=== PATIENT | male | born 1995 | race Caucasian/White ===

== ENCOUNTER 2018-03-15 09:10 | Emergency (ER) | payer MEDICAID, OTHER ==
[~2018-03-15] VITALS: Ht 185.4 cm; Wt 170.1 kg
--- OUTSIDE RECORDS SUMMARY | 2018-03-15 09:15 | XMS REPORT ---
Author Author CANDY STINSON Organization [facility] Address [address] [place] [address] Care Team Providers Care Risk Assessment Consultant Name Role Phone PATRICIO STINSONICE Unavailable PROBLEMS Type Condition ICD9-CM Code ZIL68-IE Code Onset Dates Condition Status SNOMED Code Problem Allergic rhinitis, cause unspecified 477.9 Active 65168940 Problem Acute serous otitis media 381.01 Active 849794775 Problem Unspecified infective otitis externa 380.10 Active 49316956 Problem Other general medical examination for administrative purposes V70.3 Active 06286349 ALLERGIES No Known Allergies SOCIAL HISTORY Never Assessed PLAN OF CARE Activity Details Follow Up prn Reason: VITAL SIGNS Height 70 in 2016-03-04 Weight 345 lbs 2016-03-04 Temperature 98 degrees Fahrenheit 2016-03-04 Heart Rate 80 bpm 2016-03-04 Respiratory Rate 18 2016-03-04 BMI 49.50 kg/m2 2016-03-04 Blood pressure systolic 124 mmHg 2016-03-04 Blood pressure diastolic 68 mmHg 2016-03-04 MEDICATIONS No Known Medications RESULTS No Results PROCEDURES No Known procedures IMMUNIZATIONS No Known Immunizations
--- OUTSIDE RECORDS SUMMARY | 2018-03-15 09:15 | XMS REPORT ---
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 Active 09852838 Problem Autism F84.0 Active 238362739 Problem Unspecified infective otitis externa 380.10 Active 52228267 Problem Other general medical examination for administrative purposes V70.3 Active 22387418 Problem Allergic rhinitis, cause unspecified 477.9 Active 50634319 Problem Acute serous otitis media 381.01 Active 422115576 ALLERGIES Substance Reaction Event Type Date Status Ketamine HCl Unknown Drug Allergy Apr, Active ENCOUNTERS Encounter Location Date Diagnosis [facility] [id number] [place] [phone] Apr, Autism F84.0 ; Severe mental retardation F72 and BMI 50.0-59.9, adult Z68.43 [facility] [id number] [place] [address] [phone] Feb, Physical exam, routine Z00.00 [facility] [id number] [place] [phone] May, [facility] [id number] [place] [phone] May, [facility] [id number] [place] [phone] Feb, [facility] [id number] [place] [phone] Feb, [facility] [id number] [place] [phone] June, [facility] [address] [facility] [id number] [place] [address] June, [facility] [address] [facility] [id number] [place] [phone] Aug, [facility] [address] [facility] [id number] [place] [address] Oct, IMMUNIZATIONS No Known Immunizations SOCIAL HISTORY Never Assessed REASON FOR VISIT Physical for guardianship for mom since pt is adult Melissa NEGRON PLAN OF CARE Activity Details Follow Up prn Reason: VITAL SIGNS Height 70 in 2017-05-04 Weight 360 lbs 2017-05-04 Temperature 98.7 degrees Fahrenheit 2017-05-04 Heart Rate 78 bpm 2017-05-04 Respiratory Rate 18 2017-05-04 BMI 51.65 kg/m2 2017-05-04 Blood pressure systolic 132 mmHg 2017-05-04 Blood pressure diastolic 78 mmHg 2017-05-04 MEDICATIONS No Known Medications RESULTS No Results PROCEDURES No Known procedures INSTRUCTIONS MEDICATIONS ADMINISTERED No Known Medications MEDICAL (GENERAL) HISTORY Type Description Date Medical History severe autism dx age 2 1/2 years old
--- OUTSIDE RECORDS SUMMARY | 2018-03-15 09:15 | XMS REPORT | Continuity of Care Document ---
Author Author [facility] Address Unknown Phone Unavailable Allergies Active Description Code Type Severity Reaction Onset Reported/Identified Relationship to Patient Clinical Status Yes ketamine Drug Allergy N/A N/A 03/17/2010 Medications There is no data. Problems Date Dx Coded Attending Type Code Diagnosis Diagnosed By 03/17/2010 299.00 AUTISTIC DISORDER CURRENT OR ACTIVE STATE 03/17/2010 319 UNSPECIFIED MENTAL RETARDATION 03/17/2010 V20.2 WELL CHILD 03/17/2010 LEONEL VALENTIN APRN A 299.00 AUTISTIC DISORDER CURRENT OR ACTIVE STATE 03/17/2010 HOMERO JOHNSON LEONEL A 319 UNSPECIFIED MENTAL RETARDATION 03/17/2010 CARLOS VALENTIN APRNYL A V20.2 WELL CHILD 03/17/2010 JC ALEXANDER APRN R 299.00 AUTISTIC DISORDER CURRENT OR ACTIVE STATE 03/17/2010 JC ALEXANDER APRN R 319 UNSPECIFIED MENTAL RETARDATION 03/17/2010 JC ALEXANDER APRN R V20.2 WELL CHILD 10/26/2010 380.4 IMPACTED CERUMEN 10/26/2010 388.70 EAR ACHE 10/26/2010 V05.4 VARICELLA DX 10/26/2010 V15.09 PERSONAL HISTORY OF OTHER ALLERGY OTHER THAN TO MEDICINAL AGENTS 10/26/2010 RAJNIR JOHNSON LEONEL A 380.4 IMPACTED CERUMEN 10/26/2010 RAJABHIJEETE ELIZABETH LEONEL A 388.70 EAR ACHE 10/26/2010 RAJOTTE ELIZABETH LEONEL A V05.4 VARICELLA DX 10/26/2010 RAJABHIJEETE ELIZABETH LEONEL A V15.09 PERSONAL HISTORY OF OTHER ALLERGY OTHER THAN TO MEDICINAL AGENTS 10/26/2010 LYLA ALEXANDER APRNIA R 380.4 IMPACTED CERUMEN 10/26/2010 LYLA ALEXANDER APRNIA R 388.70 EAR ACHE 10/26/2010 JC ALEXANDER APRN R V05.4 VARICELLA DX 10/26/2010 JC ALEXANDER APRN V15.09 PERSONAL HISTORY OF OTHER ALLERGY OTHER THAN TO MEDICINAL AGENTS 08/08/2012 380.10 INFECTIVE OTITIS EXTERNA UNSPECIFIED 08/08/2012 LEONEL VALENTIN APRN 380.10 INFECTIVE OTITIS EXTERNA UNSPECIFIED 08/08/2012 JC ALEXANDER APRN R 380.10 INFECTIVE OTITIS EXTERNA UNSPECIFIED 06/07/2013 LEONEL VALENTIN APRN A 381.01 ACUTE SEROUS OTITIS MEDIA 06/07/2013 LEONEL VALENTIN APRN 477.9 ALLERGIC RHINITIS CAUSE UNSPECIFIED 06/07/2013 JC ALEXANDER APRN R 381.01 ACUTE SEROUS OTITIS MEDIA 06/07/2013 JC ALEXANDER APRN 477.9 ALLERGIC RHINITIS CAUSE UNSPECIFIED 02/21/2014 JC ALEXANDER APRN V70.3 OTHER GENERAL MEDICAL EXAMINATION FOR ADMINISTRATIVE PURPOSES Procedures There is no data. Results There is no data. Encounters ACCT No. Visit Date/Time Discharge Status Pt. Type Provider Facility Loc./Unit Complaint [id number] 02/21/2014 13:18:00 02/21/2014 23:59:59 CLS Outpatient JC ALEXANDER APRN [id number] 06/07/2013 08:22:00 06/07/2013 23:59:59 CLS Outpatient LEONEL VALENTIN APRN [id number] 08/08/2012 13:20:00 Document Registration [id number] 05/04/2017 14:20:00 05/04/2017 23:59:59 [facility]
[2018-03-15 09:36] LABS: BASOPHILS # (AUTO) 0.1 10^3/uL (0.0-0.1); BASOPHILS % (AUTO) 1 % (0-10); EOSINOPHILS # (AUTO) 0.1 10^3/uL (0.0-0.3); EOSINOPHILS % (AUTO) 2 % (0-10); HEMATOCRIT 43 % (40-54); HEMOGLOBIN 14.7 G/DL (13.3-17.7); LYMPHOCYTES # (AUTO) 1.8 X 10^3 (1.0-4.0); LYMPHOCYTES % (AUTO) 27 % (12-44); MEAN CORPUSCULAR HEMOGLOBIN 29 PG (25-34); MEAN CORPUSCULAR HGB CONC 34 G/DL (32-36); MEAN CORPUSCULAR VOLUME 85 FL (80-99); MEAN PLATELET VOLUME 10.9 FL (7.4-10.4); MONOCYTES # (AUTO) 0.5 X 10^3 (0.0-1.0); MONOCYTES % (AUTO) 8 % (0-12); NEUTROPHILS # (AUTO) 4.1 X 10^3 (1.8-7.8); NEUTROPHILS % (AUTO) 63 % (42-75); PLATELET COUNT 286 10^3/uL (130-400); RED CELL DISTRIBUTION WIDTH 12.8 % (10.0-14.5); WHITE BLOOD COUNT 6.6 10^3/uL (4.3-11.0)
--- NOTE | 2018-03-15 09:38 | ED Neurological Problem ---
General Chief Complaint: Neurological Problems Stated Complaint: SEIZURE Nursing Triage Note: ARRIVED VIA EMS FROM [employer]. REPORTED THAT PT BECAME STIFF AND NON VERBAL FOR ABOUT 2-3 MINS. PT WAS LOWERED TO THE GROUND BY STAFFF. EMS REPORTS PT BEING MORE DROWSY UPON THERE ARRIVAL. UPON ARRIVAL TO ER PT ALERT ET MOM IN ROOM ET STATES HE IS ACTING HIS USUAL SELF. Nursing Sepsis Screen: No Definite Risk Source: patient, family (mom and dad), EMS, caregiver (teachers) Exam Limitations: physical impairment (autism) History of Present Illness Date Seen by Provider: Mar 15, 2018 Time Seen by Provider: 09:20 Initial Comments The patient presents to ER by EMS from school with chief complaint per teacher who was standing at his side that he went unresponsive started stiffening up arching his back and so the teacher lowered him to the floor. The event lasted 2 -3 minutes per the teacher. EMS reported normal vital signs. He did not strike his head nor is he having any complaints of pain. The call went out at 0838 to EMS. EMS reports when they arrived the patient was mildly postictal, somnolent but no neurologic symptoms otherwise. Patient does not take any medications, smoke drink or use drugs. He does not have a history of epilepsy however he did have an episode when he was 5 years old after [id number] that looked like a generalized seizure according to mom and so they went to [place] got an EEG and follow-up and were told that the did not think it was a seizure. The patient has not had any recent illness cough, colds, fevers, chills, vomiting, dysuria. Mom states that he is at baseline by the time he arrived in the ER. Patient denies having any pain anywhere except for a tooth that he's recently had repaired at the dentist. Patient does not have any significant medical history outside of autism. No history of traumatic brain injury or recent head injury. She says when he was younger he used be his head against the wall and didn't the sheet rock. He's not had any neuro imaging of the brain since he was 5 years old. He follows with the [facility] in [place]. Allergies and Home Medications Allergies Coded Allergies: ketamine (Verified Allergy, Unknown, 03/15/18) Home Medications No Active Prescriptions or Reported Meds Patient Home Medication List Home Medication List Reviewed: Yes Review of Systems Review of Systems Constitutional: No chills, No diaphoresis Eyes: Denies Blindness, Denies Blurred Vision, Denies Drainage Ears, Nose, Mouth, Throat: denies ear pain, denies ear discharge, denies nose pain Respiratory: No cough, No dyspnea on exertion, No hemoptysis, No phlegm, No wheezing Cardiovascular: No edema, No palpitations Gastrointestinal: No abdominal pain, No constipation, No diarrhea, No vomiting Genitourinary: No discharge, No dysuria Musculoskeletal: No back pain, No joint pain, No neck pain Past Yhliajk-Gfuroj-Iuqawq Hx Patient Social History Alcohol Use: Denies Use Recreational Drug Use: No Smoking Status: Never a Smoker Recent Foreign Travel: No Contact w/Someone Who Travel: No Recent Infectious Disease Expo: No Recent Hopitalizations: No Seasonal Allergies Seasonal Allergies: No Past Medical History Surgeries: No Respiratory: No Cardiac: No Neurological: Yes (AUTISITIC) Genitourinary: No Gastrointestinal: No Musculoskeletal: No Endocrine: No HEENT: No Cancer: No Psychosocial: No Integumentary: No Physical Exam Vital Signs Vital Signs - First Documented 03/15/18 09:21 Temp 97.8 Pulse 101 Resp 16 B/P (MAP) 143/88 (106) Pulse Ox 97 O2 Delivery Room Air Capillary Refill : Less Than 3 Seconds Height, Weight, BMI Height: 6'1.00" Weight: 375lbs. oz. 170.516456ts; BMI Method:Stated General Appearance: WD/WN, no apparent distress HEENT: PERRL/EOMI, normal ENT inspection, TMs normal (right canal is occluded with cerumen), pharynx normal Neck: non-tender, full range of motion, supple, normal inspection Respiratory: chest non-tender, lungs clear, normal breath sounds, no respiratory distress, no accessory muscle use Cardiovascular: normal peripheral pulses, regular rate, rhythm, no edema Peripheral Pulses: 2+ Dorsalis Pedis (R), 2+ Left Dors-Pedis (L), 2+ Radial Pulses (R), 2+ Radial Pulses (L) Gastrointestinal: normal bowel sounds, non tender, soft Extremities: normal range of motion, non-tender, normal inspection, normal capillary refill Neurologic/Psychiatric: alert, normal mood/affect, oriented x 3 Crainal Nerves: normal hearing, normal speech Motor/Sensory: no motor deficit, no sensory deficit Skin: normal color, warm/dry Progress/Results/Core Measures Results/Orders Lab Results Laboratory Tests Test 03/15/18 09:21 03/15/18 10:00 Range/Units White Blood Count 6.6 4.3-11.0 10^3/uL Red Blood Count 5.09 4.35-5.85 10^6/uL Hemoglobin 14.7 13.3-17.7 G/DL Hematocrit 43 40-54 % Mean Corpuscular Volume 85 80-99 FL Mean Corpuscular Hemoglobin 29 25-34 PG Mean Corpuscular Hemoglobin Concent 34 32-36 G/DL Red Cell Distribution Width 12.8 10.0-14.5 % Platelet Count 286 130-400 10^3/uL Mean Platelet Volume 10.9 H 7.4-10.4 FL Neutrophils (%) (Auto) 63 42-75 % Lymphocytes (%) (Auto) 27 12-44 % Monocytes (%) (Auto) 8 0-12 % Eosinophils (%) (Auto) 2 0-10 % Basophils (%) (Auto) 1 0-10 % Neutrophils # (Auto) 4.1 1.8-7.8 X 10^3 Lymphocytes # (Auto) 1.8 1.0-4.0 X 10^3 Monocytes # (Auto) 0.5 0.0-1.0 X 10^3 Eosinophils # (Auto) 0.1 0.0-0.3 10^3/uL Basophils # (Auto) 0.1 0.0-0.1 10^3/uL Sodium Level 137 135-145 MMOL/L Potassium Level 4.6 3.6-5.0 MMOL/L Chloride Level 106 98-107 MMOL/L Carbon Dioxide Level 21 21-32 MMOL/L Anion Gap 10 5-14 MMOL/L Blood Urea Nitrogen 13 7-18 MG/DL Creatinine 1.03 0.60-1.30 MG/DL Estimat Glomerular Filtration Rate > 60 BUN/Creatinine Ratio 13 Glucose Level 75 70-105 MG/DL Calcium Level 9.5 8.5-10.1 MG/DL Corrected Calcium 9.3 8.5-10.1 MG/DL Magnesium Level 2.5 H 1.8-2.4 MG/DL Total Bilirubin 0.4 0.1-1.0 MG/DL Aspartate Amino Transf (AST/SGOT) 30 5-34 U/L Alanine Aminotransferase (ALT/SGPT) 23 0-55 U/L Alkaline Phosphatase 52 40-136 U/L Total Creatine Kinase 347 H 30-200 U/L Total Protein 7.1 6.4-8.2 GM/DL Albumin 4.3 3.2-4.5 GM/DL Thyroid Stimulating Hormone (TSH) 2.42 0.35-4.94 UIU/ML Urine Color YELLOW Urine Clarity CLEAR Urine pH 6 5-9 Urine Specific [place] 1.020 1.016-1.022 Urine Protein 2+ H NEGATIVE Urine Glucose (UA) NEGATIVE NEGATIVE Urine Ketones 1+ H NEGATIVE Urine Nitrite NEGATIVE NEGATIVE Urine Bilirubin NEGATIVE NEGATIVE Urine Urobilinogen NORMAL NORMAL MG/DL Urine Leukocyte Esterase NEGATIVE NEGATIVE Urine RBC (Auto) 1+ H NEGATIVE Urine RBC NONE /HPF Urine WBC NONE /HPF Urine Squamous Epithelial Cells RARE /HPF Urine Crystals NONE /LPF Urine Bacteria NEGATIVE /HPF Urine Casts NONE /LPF Urine Mucus NEGATIVE /LPF Urine Culture Indicated NO Urine Opiates Screen NEGATIVE NEGATIVE Urine Oxycodone Screen NEGATIVE NEGATIVE Urine Methadone Screen NEGATIVE NEGATIVE Urine Propoxyphene Screen NEGATIVE NEGATIVE Urine Barbiturates Screen NEGATIVE NEGATIVE Ur Tricyclic Antidepressants Screen NEGATIVE NEGATIVE Urine Phencyclidine Screen NEGATIVE NEGATIVE Urine Amphetamines Screen NEGATIVE NEGATIVE Urine Methamphetamines Screen NEGATIVE NEGATIVE Urine Benzodiazepines Screen NEGATIVE NEGATIVE Urine Cocaine Screen NEGATIVE NEGATIVE Urine Cannabinoids Screen NEGATIVE NEGATIVE My Orders Orders - CARLY VINSON Cbc With Automated Diff (03/15/18 09:28) Comprehensive Metabolic Panel (03/15/18 09:28) Thyroid Stimulating Hormone (03/15/18 09:28) Ct Head Wo (03/15/18 09:28) Chest Pa/Lat (2 View) (03/15/18 09:28) Orthostatic Vital Signs (Adult (03/15/18 09:28) Ekg Tracing (03/15/18 09:28) Continuous Ekg Monitoring (03/15/18 09:28) Creatine Kinase (03/15/18 09:28) Magnesium (03/15/18 09:28) Ua Culture If Indicated (03/15/18 09:28) Drug Screen Stat (Urine) (03/15/18 09:28) Vital Signs/I&O 03/15/18 03/15/18 09:21 09:59 Temp 97.8 Pulse 101 86 78 94 Resp 16 B/P (MAP) 143/88 (106) 142/84 (103) 146/90 (108) 161/87 (111) Pulse Ox 97 O2 Delivery Room Air Blood Pressure Mean: 106 Progress Progress Note #1: Time: 09:36 Progress Note He had some Syncopal versus seizure episode when he was 5 but was ruled not to be a seizure by neurology at that time so we'll treat this as an adult with the initial so far unprovoked seizure. Return to get some labs to include electrolytes, urinalysis, urine drug screen, chest x-ray and a CT of the head looking for provocation. If we don't find it we'll have him follow-up with neurology at [place] again. He has normal vital signs and normal baseline examination per family upon arrival to the ER. I do not find any neurologic deficits. There is no recent injury to the head however he did used to strike his head against the wall multiple times the child could be some lingering traumatic brain injury. The description of general tonic-clonic seizure with a postictal period is convincing. The patient did not have any loss of continence or cheek or tongue biting. We will also obtain a CPK and EKG. We cannot get a pro-calcitonin quickly. We cannot get an MRI today so will settle for a CT of the brain and can delay MRI outpatient if the CT is normal. Progress Note #2: Time: 10:32 Progress Note Patient's been comfortable since she's been here. Neurologically intact at baseline. No significant findings on CT, chest x-ray, EKG, orthostatics, blood or urine. This would be considered a solitary unprovoked seizure so we'll discuss follow-up with neurology at [place]. At this time there is probably not enough benefits to outweigh the risks of starting antiepileptic medication. Initial ECG Impression Date: Mar 15, 2018 Initial ECG Impression Time: 09:35 Initial ECG Rate: 95 Initial ECG Rhythm: Normal Sinus Initial ECG Intervals: Normal Initial ECG Impression: Normal Initial ECG Comparisson: No Previous ECG Available Comment No dysrhythmia. No ST elevation or depression Diagnostic Imaging Diagonstic Imaging: Xray Plain Films/CT/US/NM/MRI: chest (2 view) Comments No acute cardiopulmonary processes noted. No acute osseous abnormalities. [facility] [employer] [employer] [place], [place] NAME: CYRSTAL CHESTER [facility] REC#: [id number] PT STATUS: REG ER : 1995 PHYSICIAN: CARLY VINSON MD ADMIT DATE: 03/15/18/ER Draft Date of Exam:03/15/18 CHEST PA/LAT (2 VIEW) INDICATION: Seizure. PA and lateral chest obtained at 10:17 a.m. FINDINGS: Heart and mediastinal silhouette are normal in appearance. The lungs are clear. There is no pneumothorax or pleural fluid. IMPRESSION: Negative chest. Dictated on workstation # [id number] Dict: 03/15/18 1027 Trans: 03/15/18 1031 [id number] Interpreted by: BROOKLYNN ALMEIDA MD Electronically signed by: Reviewed: Reviewed by Me Diagonstic Imaging: CT (without contrast) Plain Films/CT/US/NM/MRI: head Comments NAME: CRYSTAL CHESTER [facility] REC#: [id number] PT STATUS: REG ER : 1995 PHYSICIAN: CARLY VINSON MD ADMIT DATE: 03/15/18/ER Draft Date of Exam:03/15/18 CT HEAD WO PROCEDURE: CT head without contrast. TECHNIQUE: Multiple contiguous axial images were obtained through the brain without the use of intravenous contrast. INDICATION: Seizure. COMPARISON: None. FINDINGS: No intracranial hemorrhage, mass effect, hydrocephalus or extra-axial fluid collections. No CT evidence of acute infarction. The paranasal sinuses and mastoids are clear. No acute osseous findings. IMPRESSION: Negative head CT. Dictated on workstation # [id number] Dict: 03/15/18 1021 Trans: 03/15/18 1025 TRINA [id number] Interpreted by: PIERCE GRADY MD Electronically signed by: Reviewed: Reviewed by Me Departure Impression Primary Impression: Observed seizure-like activity Disposition: 01 HOME, SELF-CARE Condition: Stable Departure-Patient Inst. Decision time for Depature: 10:33 Patient Instructions: Seizures, Adult (DC) Add. Discharge Instructions: Follow up in the clinic for appropriate work up with Neurology at [place], [phone]. You can also follow-up with primary care for referrals and management. If you do experience a seizure move him to a safe place without putting your hands or anything else near his mouth. Time the seizure. If the seizures are becoming more frequent or are getting longer each time then you should bring him back to the ER. If they last for longer than 10 minutes then you should call EMS. All discharge instructions reviewed with patient and/or family. Voiced understanding. Scripts No Active Prescriptions or Reported Meds Work/School Note: School/Childcare Release Date Seen in the Emergency Department: Mar 15, 2018 Time Dismissed from Emergency Department: 10:39 Return to School: Mar 15, 2018 Restrictions: No Restrictions Copy Copies To 1: ERIK FRANCISCO TITUS J Mar 15, 2018 09:37
[2018-03-15 09:48] LABS: ALANINE AMINOTRANSFERASE 23 U/L (0-55); ALBUMIN 4.3 GM/DL (3.2-4.5); ALKALINE PHOSPHATASE 52 U/L (40-136); BILIRUBIN,TOTAL 0.4 MG/DL (0.1-1.0); BUN/CREATININE RATIO 13; CALCIUM 9.5 MG/DL (8.5-10.1); CARBON DIOXIDE 21 MMOL/L (21-32); CHLORIDE 106 MMOL/L (98-107); CREATINE KINASE 347 U/L (30-200); CREATININE SERUM 1.03 MG/DL (0.60-1.30); GFR ESTIMATED > 60; GLUCOSE 75 MG/DL (70-105); MAGNESIUM 2.5 MG/DL (1.8-2.4); POTASSIUM 4.6 MMOL/L (3.6-5.0); SODIUM 137 MMOL/L (135-145); TOTAL PROTEIN 7.1 GM/DL (6.4-8.2)
[2018-03-15 09:59] VITALS: BP_SYST 142; BP_SYST 146; BP_SYST 161; BP_DIAS 84; BP_DIAS 87; BP_DIAS 90
[2018-03-15 10:13] LABS: BILIRUBIN,URINE NEGATIVE (NEGATIVE); CLARITY,URINE CLEAR; COLOR,URINE YELLOW; GLUCOSE, URINE (UA) NEGATIVE (NEGATIVE); KETONES,URINE 1+ (NEGATIVE); LEUKOCYTE ESTERASE ,URINE NEGATIVE (NEGATIVE); NITRITE,URINE NEGATIVE (NEGATIVE); PH,URINE 6 (5-9); PROTEIN,URINE 2+ (NEGATIVE); UROBILINOGEN,URINE NORMAL (NORMAL)
[2018-03-15 10:26] LABS: AMPHETAMINE SCREEN, URINE NEGATIVE (NEGATIVE); BARBITURATE SCREEN URINE NEGATIVE (NEGATIVE); BENZODIAZEPINES SCREEN URINE NEGATIVE (NEGATIVE); CANNABINOID SCREEN, URINE NEGATIVE (NEGATIVE); COCAINE SCREEN URINE NEGATIVE (NEGATIVE); METHADONE STAT NEGATIVE (NEGATIVE); METHAMPHETAMINE SCREEN URINE S NEGATIVE (NEGATIVE); OPIATE SCREEN URINE NEGATIVE (NEGATIVE); OXYCODONE STAT NEGATIVE (NEGATIVE); PROPOXYPHENE STAT NEGATIVE (NEGATIVE); TRICYCLIC ANTIDEPRESSANTS SCRE NEGATIVE (NEGATIVE)
--- NOTE | 2018-03-15 10:26 | Diagnostic Imaging Report ---
PROCEDURE: CT head without contrast. TECHNIQUE: Multiple contiguous axial images were obtained through the brain without the use of intravenous contrast. INDICATION: Seizure. COMPARISON: None. FINDINGS: No intracranial hemorrhage, mass effect, hydrocephalus or extra-axial fluid collections. No CT evidence of acute infarction. The paranasal sinuses and mastoids are clear. No acute osseous findings. IMPRESSION: Negative head CT. Dictated by: Dictated on workstation # [id number]
[2018-03-15 10:27] LABS: BACTERIA,URINE NEGATIVE /HPF; SQUAMOUS EPITHELIAL CELL,UR RARE /HPF
--- NOTE | 2018-03-15 10:31 | Diagnostic Imaging Report ---
INDICATION: Seizure. PA and lateral chest obtained at 10:17 a.m. FINDINGS: Heart and mediastinal silhouette are normal in appearance. The lungs are clear. There is no pneumothorax or pleural fluid. IMPRESSION: Negative chest. Dictated by: Dictated on workstation # [id number]
[2018-03-15 11:07] VITALS: BP 157/93
== END 2018-03-15 13:00 | disposition home or self-care (01) ==
LOC: ER 09:12
DX: R25.9 Unspecified abnormal involuntary movements (principal); F84.0 Autistic disorder; Z88.4 Allergy status to anesthetic agent
CPT/HCPCS: 36415; 70450; 71046; 80053; 80306; 81000; 82550; 83735; 84443; 85025; 93005